=== PATIENT | female | born 1940 | race Caucasian/White ===

== ENCOUNTER 2020-05-14 11:15 | Outpatient (CLI) | payer MEDICARE | END 2020-05-14 23:59 | disposition home or self-care (01) | LOC: CFH 11:15 | PROVIDERS: ATTEND Nurse Practitioner Family | DX: M81.0 Age-related osteoporosis without current pathological fracture (principal); N95.9 Unspecified menopausal and perimenopausal disorder | CPT/HCPCS: 77080 ==

== ENCOUNTER 2021-03-31 07:34 | Outpatient (CLI) | payer MEDICARE | END 2021-03-31 23:59 | disposition home or self-care (01) | LOC: CFH 07:34 → RAD 23:59 | PROVIDERS: ATTEND Obstetrics & Gynecology | DX: Z12.31 Encounter for screening mammogram for malignant neoplasm of breast (principal); K76.89 Other specified diseases of liver | CPT/HCPCS: 74021; 76700; 77063; 77067 ==